=== PATIENT | male | born 1995 | race Two or more races ===

== ENCOUNTER 2022-03-18 17:26 | Emergency (ER) | payer MEDICAID ==
[2022-03-18] MEDS ORDERED: Sodium Chloride 0.9% 10 ML Syringe FLUSH PRN (17:44)
[2022-03-18] MEDS ORDERED: Metoprolol Succinate 25 MG Tab.ER PO ONE (18:49)
== END 2022-03-18 20:05 | disposition home or self-care (01) ==
LOC: JD.ED 17:26
DX: R00.0 Tachycardia, unspecified (principal); Z79.899 Other long term (current) drug therapy; Z88.8 Allergy status to other drugs, medicaments and biological substances
CPT/HCPCS: 36415; 71045; 80053; 83735; 84484; 85025; 85379; 86140; 93005; 99285; A9270; J3490

== ENCOUNTER 2023-03-27 10:59 | Emergency (ER) | payer MEDICAID ==
[2023-03-27] MEDS ORDERED: Sodium Chloride 0.9% 10 ML Syringe FLUSH PRN ×2 (11:18→11:35)
[2023-03-27] MEDS ORDERED: Sodium Chloride 0.9% 1,000 ML IV STA (11:18)
[2023-03-27] MEDS ORDERED: Ondansetron 4 MG/2 ML SDV IVPUSH ONE (11:32)
[2023-03-27] MEDS ORDERED: HYDROmorphone 0.5 MG/0.5 ML Syringe IVPUSH ONE ×2 (11:32→12:57)
[2023-03-27] MEDS ORDERED: Iopamidol 612 MG/ML 100 ML Bottle IVPUSH ONE ×2 (11:35→12:22)
[2023-03-27 12:03] LABS: BASOPHILS ABSOLUTE AUTO 0.02 K/mm3 (0.01-0.08); BASOPHILS PERCENT AUTO 0.3 % (0.1-1.2); EOSINOPHILS ABSOLUTE AUTO 0.12 K/mm3 (0.04-0.54); EOSINOPHILS PERCENT AUTO 1.8 (0.8-7.0); HEMATOCRIT 48.9 % (40.1-51.0); HEMOGLOBIN 16.8 gm/dl (13.7-17.5); IMMATURE GRAN ABSOLUTE AUTO 0.03 K/mm3 (0.00-0.10); IMMATURE GRAN PERCENT AUTO 0.4 % (<=1.0); LYMPHOCYTES ABSOLUTE AUTO 2.28 K/mm3 (1.32-3.57); MEAN CORPUSCULAR HEMOGLOBIN 31.1 pg (25.7-32.2); MEAN CORPUSCULAR HGB CONC 34.4 g/dl (32.2-35.5); MEAN CORPUSCULAR VOLUME 90.6 fl (79.0-92.2); MEAN PLATELET VOLUME 11.4 fl (9.4-12.3); MONOCYTES ABSOLUTE AUTO 0.61 K/mm3 (0.30-0.82); MONOCYTES PERCENT AUTO 9.1 % (5.3-12.2); NEUTROPHILS ABSOLUTE AUTO 3.64 K/mm3 (1.78-5.38); NEUTROPHILS PERCENT AUTO 54.4 % (34.0-67.9); PLATELET COUNT,PLT 252 K/mm3 (163-337)
[2023-03-27] MEDS ORDERED: Sodium Chloride 0.9% 10 ML Syringe FLUSH ONE (12:22)
[2023-03-27 12:27] LABS: ALANINE AMINOTRANSFERASE,ALT 55 U/L (16-63); ALBUMIN 4.4 g/dl (3.4-5.0); ALKALINE PHOSPHATASE 96 U/L (46-116); ANION GAP 13.1 (5-15); ASPARTATE AMNIOTRANSFERASE,AST 37 U/L (15-37); BILIRUBIN TOTAL 1.5 mg/dL (0.2-1.0); BLOOD UREA NITROGEN,BUN 9 mg/dL (7-18); BUN/CREATININE RATIO 11.3 (14-18); C-REACTIVE PROTEIN <0.2 mg/dL (<1.0); CALCIUM 9.4 mg/dL (8.5-10.1); CARBON DIOXIDE,CO2 26 mEq/L (21-32); CHLORIDE,CL 102 mEq/L (98-107); CREATININE 0.8 mg/dL (0.7-1.3); ESTIMATED GFR 125 mL/min (>60); GLUCOSE RANDOM 91 mg/dL (70-99); LIPASE 52 U/L (73-393); POTASSIUM,K 4.1 mEq/L (3.5-5.1); PROTEIN TOTAL,TP 8.8 g/dl (6.4-8.2); SODIUM,NA 137 mEq/L (136-145)
[2023-03-27] MEDS ORDERED: Alum Hydrox/Mag Hydrox/Simeth 30 ML, Lidocaine 2% 15 ML PO ONE ×2 (13:29)
== END 2023-03-27 14:46 | disposition home or self-care (01) ==
LOC: JD.ED 10:59
DX: R10.84 Generalized abdominal pain (principal); R11.2 Nausea with vomiting, unspecified; R19.7 Diarrhea, unspecified; I48.91 Unspecified atrial fibrillation; Z88.6 Allergy status to analgesic agent; Z88.5 Allergy status to narcotic agent; Z91.040 Latex allergy status; Z79.899 Other long term (current) drug therapy
CPT/HCPCS: 36415; 74177; 80053; 83690; 85025; 86140; 96361; 96374; 96375; 96376; 99284; A9270; J1170; J2405; J3490; J7030; Q9967

== ENCOUNTER 2023-07-10 12:52 | Emergency (ER) | payer MEDICAID ==
[2023-07-10 13:55] LABS: BASOPHILS ABSOLUTE AUTO 0.1 K/mm3 (0.0-0.2); BASOPHILS PERCENT AUTO 0.7 % (0.0-1.0); EOSINOPHILS ABSOLUTE AUTO 0.2 K/mm3 (0.0-0.4); EOSINOPHILS PERCENT AUTO 2.1 % (0.0-6.0); HEMATOCRIT 48.2 % (42.0-52.0); HEMOGLOBIN 16.5 gm/dl (14.0-18.0); IMMATURE GRAN ABSOLUTE AUTO 0.08 K/mm3 (0.00-0.05); IMMATURE GRAN PERCENT AUTO 0.9 % (0.0-0.4); LYMPHOCYTES ABSOLUTE AUTO 3.1 K/mm3 (1.0-4.8); LYMPHOCYTES PERCENT AUTO 36.3 % (24.0-44.0); MEAN CORPUSCULAR HEMOGLOBIN 31.1 pg (28.0-32.0); MEAN CORPUSCULAR HGB CONC 34.2 g/dl (32.0-36.0); MEAN CORPUSCULAR VOLUME 90.9 fl (83.0-99.0); MEAN PLATELET VOLUME 11.2 fl (9.4-12.4); MONOCYTES ABSOLUTE AUTO 0.7 K/mm3 (0.0-0.8); MONOCYTES PERCENT AUTO 8.3 % (0.0-8.0); NEUTROPHILS ABSOLUTE AUTO 4.5 K/mm3 (1.8-7.7); NEUTROPHILS PERCENT AUTO 51.7 % (41.0-71.0); PLATELET COUNT,PLT 279 K/mm3 (150-400)
[2023-07-10] MEDS ORDERED: HYDROmorphone 0.5 MG/0.5 ML Syringe IVPUSH ONE ×2 (13:57→15:02)
[2023-07-10] MEDS ORDERED: Iopamidol 755 Mg/ML 100 ML Bottle IVPUSH ONE (13:59)
[2023-07-10] MEDS ORDERED: Sodium Chloride 0.9% 100 ML IV SCH (14:00)
[2023-07-10 14:05] LABS: A/G RATIO 0.9 (1-2); ALANINE AMINOTRANSFERASE,ALT 48 U/L (16-63); ALBUMIN 4.1 g/dl (3.4-5.0); ALKALINE PHOSPHATASE 89 U/L (46-116); ANION GAP 12.8 (5-15); ASPARTATE AMNIOTRANSFERASE,AST 28 U/L (15-37); BILIRUBIN TOTAL 0.6 mg/dL (0.2-1.0); BLOOD UREA NITROGEN,BUN 10 mg/dL (7-18); BUN/CREATININE RATIO 12.5 (14-18); CALCIUM 9.3 mg/dL (8.5-10.1); CARBON DIOXIDE,CO2 27 mEq/L (21-32); CHLORIDE,CL 102 mEq/L (98-107); CREATININE 0.8 mg/dL (0.7-1.3); EST CRCL DRUG DOSING (CG) 134.19 mL/min; ESTIMATED GFR 124 mL/min (>60); GLUCOSE RANDOM 103 mg/dL (70-99); MAGNESIUM 1.9 mg/dL (1.8-2.4); POTASSIUM,K 3.8 mEq/L (3.5-5.1); PROTEIN TOTAL,TP 8.6 g/dl (6.4-8.2); SODIUM,NA 138 mEq/L (136-145)
[2023-07-10 14:09] LABS: TROPONIN I HIGH SENSITIVITY < 4 pg/mL (<=76)
[2023-07-10 14:10] LABS: PTT,PARTIAL THROMBOPLSTIN TIME 30.2 SECONDS (21.7-31.4)
[2023-07-10 14:11] LABS: INR 1.01; PROTHROMBIN TIME 10.8 SECONDS (9.7-12.0)
[2023-07-10 14:16] LABS: D-DIMER QUANTITATIVE < 0.19 mg/L (0.19-0.50)
[2023-07-10] MEDS ORDERED: LORazepam 2 MG/ML SDV IVPUSH ONE (15:14)
[2023-07-10] MEDS ORDERED: Sodium Chloride 0.9% 1,000 ML IV ONE (15:35)
[2023-07-10] MEDS ORDERED: Metoprolol Tartrate 5 MG/5 ML SDV IVPUSH ONE (15:35)
[2023-07-10] MEDS ORDERED: Aluminum Hydroxide/Magnesium Hydroxide/Simethicone Susp 30 ML Cup PO ONE (17:03)
[2023-07-10] MEDS ORDERED: Pantoprazole 40 MG Tab.CR PO ONE (17:20)
== END 2023-07-10 17:37 | disposition home or self-care (01) ==
LOC: JD.ED 12:52
DX: R07.89 Other chest pain (principal); R00.0 Tachycardia, unspecified; I48.91 Unspecified atrial fibrillation; Z91.040 Latex allergy status; Z88.5 Allergy status to narcotic agent
CPT/HCPCS: 36415; 71275; 80053; 83735; 84484; 85025; 85379; 85610; 85730; 93005; 96374; 96375; 96376; 99285; A9270; J1170; J3490; J7030; Q9967; 93010; 99284

== ENCOUNTER 2024-01-29 14:59 | Emergency (ER) | payer MEDICAID ==
[2024-01-29 15:41] LABS: BASOPHILS ABSOLUTE AUTO 0.1 K/mm3 (0.0-0.2); BASOPHILS PERCENT AUTO 0.6 % (0.0-1.0); EOSINOPHILS ABSOLUTE AUTO 0.1 K/mm3 (0.0-0.4); EOSINOPHILS PERCENT AUTO 1.1 % (0.0-6.0); HEMATOCRIT 46.5 % (42.0-52.0); HEMOGLOBIN 16.2 gm/dl (14.0-18.0); IMMATURE GRAN ABSOLUTE AUTO 0.07 K/mm3 (0.00-0.05); IMMATURE GRAN PERCENT AUTO 0.7 % (0.0-0.4); LYMPHOCYTES ABSOLUTE AUTO 2.6 K/mm3 (1.0-4.8); MEAN CORPUSCULAR HEMOGLOBIN 31.5 pg (28.0-32.0); MEAN CORPUSCULAR HGB CONC 34.8 g/dl (32.0-36.0); MEAN CORPUSCULAR VOLUME 90.5 fl (83.0-99.0); MEAN PLATELET VOLUME 10.9 fl (9.4-12.4); MONOCYTES ABSOLUTE AUTO 0.9 K/mm3 (0.0-0.8); NEUTROPHILS ABSOLUTE AUTO 5.9 K/mm3 (1.8-7.7); NEUTROPHILS PERCENT AUTO 61.6 % (41.0-71.0); PLATELET COUNT,PLT 271 K/mm3 (150-400); RED BLOOD CELL COUNT 5.14 M/mm3 (4.52-5.90); WHITE BLOOD CELL COUNT,WBC 9.59 K/mm3 (3.9-11.3)
[2024-01-29 16:13] LABS: ALBUMIN 4.2 g/dl (3.4-5.0); ANION GAP 14.9 (5-15); BILIRUBIN TOTAL 0.9 mg/dL (0.2-1.0); BUN/CREATININE RATIO 11.4 (14-18); CALCIUM 9.1 mg/dL (8.5-10.1); CREATININE 0.7 mg/dL (0.7-1.3); EST CRCL DRUG DOSING (CG) 153.36 mL/min; POTASSIUM,K 3.9 mEq/L (3.5-5.1); PROTEIN TOTAL,TP 8.4 g/dl (6.4-8.2)
[2024-01-29 16:17] LABS: TSH 1.065 uIU/mL (0.358-3.74)
[2024-01-29] MEDS: Metoprolol Succinate 50 MG Tab.ER PO ONE (16:25)
[2024-01-29 17:17] LABS: APPEARANCE,URINE CLEAR (Clear); BILIRUBIN,URINE NEGATIVE (Negative); COLOR,URINE YELLOW (Yellow); GLUCOSE,URINE NEGATIVE (Negative); KETONES,URINE NEGATIVE (Negative); LEUKOCYTE ESTERASE,URINE NEGATIVE (Negative); NITRITE,URINE NEGATIVE (Negative); OCCULT BLOOD,URINE TRACE-INTACT (Negative); PH,URINE 6.5 (5.0-8.0); PROTEIN,URINE NEGATIVE (Negative)
[2024-01-29 17:46] LABS: RBC,URINE 0-5 /hpf (0-5); SQUAMOUS EPITHELIAL CELLS,UR 0-5 /hpf (0-5); WBC,URINE 0-5 /hpf (0-5)
[2024-01-29 17:47] LABS: BACTERIA,URINE FEW /hpf (FEW); MUCUS,URINE FEW /hpf (FEW)
== END 2024-01-29 17:35 | disposition home or self-care (01) ==
LOC: JD.ED 14:59
DX: R00.2 Palpitations (principal); R00.0 Tachycardia, unspecified; Z86.16 Personal history of COVID-19; Z79.899 Other long term (current) drug therapy; Z88.5 Allergy status to narcotic agent; Z91.040 Latex allergy status
CPT/HCPCS: 36415; 71046; 80053; 81001; 84443; 84484; 85025; 85379; 93005; 99285; A9270; 93010; 99283

== ENCOUNTER 2024-03-07 19:04 | Emergency (ER) | payer MEDICAID ==
[2024-03-07] MEDS: Sodium Chloride 0.9% 10 ML Syringe FLUSH PRN (20:00)
[2024-03-07 20:03] LABS: BASOPHILS ABSOLUTE AUTO 0.1 K/mm3 (0.0-0.2); BASOPHILS PERCENT AUTO 0.6 % (0.0-1.0); EOSINOPHILS ABSOLUTE AUTO 0.2 K/mm3 (0.0-0.4); EOSINOPHILS PERCENT AUTO 2.2 % (0.0-6.0); HEMOGLOBIN 16.4 gm/dl (14.0-18.0); IMMATURE GRAN ABSOLUTE AUTO 0.04 K/mm3 (0.00-0.05); IMMATURE GRAN PERCENT AUTO 0.4 % (0.0-0.4); LYMPHOCYTES ABSOLUTE AUTO 4.2 K/mm3 (1.0-4.8); LYMPHOCYTES PERCENT AUTO 39.2 % (24.0-44.0); MEAN CORPUSCULAR HEMOGLOBIN 31.3 pg (28.0-32.0); MEAN CORPUSCULAR HGB CONC 34.9 g/dl (32.0-36.0); MEAN CORPUSCULAR VOLUME 89.7 fl (83.0-99.0); MEAN PLATELET VOLUME 10.7 fl (9.4-12.4); MONOCYTES PERCENT AUTO 9.2 % (0.0-8.0); NEUTROPHILS ABSOLUTE AUTO 5.1 K/mm3 (1.8-7.7); NEUTROPHILS PERCENT AUTO 48.4 % (41.0-71.0); PLATELET COUNT,PLT 284 K/mm3 (150-400); RED BLOOD CELL COUNT 5.24 M/mm3 (4.52-5.90); WHITE BLOOD CELL COUNT,WBC 10.59 K/mm3 (3.9-11.3)
[2024-03-07] MEDS: Sodium Chloride 0.9% 1,000 ML IV SCH (20:14)
[2024-03-07] MEDS: Ondansetron 4 MG/2 ML SDV IVPUSH ONE ×2 (20:14→21:35)
[2024-03-07 20:27] LABS: ALBUMIN 4.1 g/dl (3.4-5.0); ANION GAP 12.8 (5-15); BILIRUBIN TOTAL 0.7 mg/dL (0.2-1.0); BUN/CREATININE RATIO 8.8 (14-18); C-REACTIVE PROTEIN 0.37 mg/dL (<0.30); CALCIUM 9.2 mg/dL (8.5-10.1); CREATININE 0.8 mg/dL (0.7-1.3); EST CRCL DRUG DOSING (CG) 134.19 mL/min; MAGNESIUM 1.9 mg/dL (1.8-2.4); PROTEIN TOTAL,TP 8.2 g/dl (6.4-8.2)
[2024-03-07 20:30] LABS: POTASSIUM,K 3.8 mEq/L (3.5-5.1)
[2024-03-07] MEDS ORDERED: traZODone 50 MG Tab PO SCH (21:00)
[2024-03-07] MEDS: HYDROmorphone 0.5 MG/0.5 ML Syringe IVPUSH ONE (21:04)
[2024-03-07] MEDS: Iopamidol 612 MG/ML 100 ML Bottle IVPUSH ONE (21:23)
[2024-03-07] MEDS ORDERED: Acetaminophen 325 MG Tab PO PRN (21:32)
[2024-03-07] MEDS ORDERED: 50% Dextrose in Water 50 ML Syringe IVPUSH PRN (21:35)
[2024-03-07] MEDS: OLANZapine 5 MG Tab PO ONE (21:42)
[2024-03-07] MEDS ORDERED: risperiDONE 1 MG Tab PO SCH (21:45)
[2024-03-07] MEDS: Promethazine 25 MG/ML SDV IM ONE (22:51)
[2024-03-08] MEDS ORDERED: Insulin Regular, Human 100 Units/ML 3 ML Vial SUBCUT SCH (09:00)
[2024-03-08] MEDS ORDERED: Potassium Chloride 20 MEQ Tab.ER PO SCH (09:00)
[2024-03-08] MEDS ORDERED: Sertraline 50 MG Tab PO SCH (09:00)
[2024-03-08] MEDS ORDERED: Folic Acid 1 MG Tab PO SCH (09:00)
[2024-03-08] MEDS ORDERED: Furosemide 20 MG Tab PO SCH (09:00)
[2024-03-08] MEDS ORDERED: Metoprolol Succinate 50 MG Tab.ER PO SCH (09:00)
[2024-03-08] MEDS ORDERED: Spironolactone 25 MG Tab PO SCH (09:00)
[2024-03-08] MEDS ORDERED: Aspirin 81 MG Tab.EC PO SCH (09:00)
[2024-03-08] MEDS ORDERED: Lisinopril 10 MG Tab PO SCH (09:00)
[2024-03-08] MEDS ORDERED: Topiramate 25 MG Tab PO SCH (09:00)
[2024-03-08] MEDS ORDERED: Tamsulosin 0.4 MG Cap.ER PO SCH (10:00)
[2024-03-08] MEDS ORDERED: Rosuvastatin 10 MG Tab PO SCH (21:00)
== END 2024-03-07 22:35 | disposition home or self-care (01) ==
LOC: JD.ED 19:04
DX: K52.9 Noninfective gastroenteritis and colitis, unspecified (principal); I48.91 Unspecified atrial fibrillation; Z86.16 Personal history of COVID-19; Z79.899 Other long term (current) drug therapy; Z91.040 Latex allergy status; Z88.5 Allergy status to narcotic agent; Z88.6 Allergy status to analgesic agent
CPT/HCPCS: 36415; 74177; 80053; 83690; 83735; 85025; 86140; 96361; 96374; 96375; 99284; J1170; J2405; J3490; J7030; Q9967

== ENCOUNTER 2024-05-20 19:59 | Emergency (ER) | payer MEDICAID ==
[2024-05-20] MEDS ORDERED: Sodium Chloride 0.9% 10 ML Syringe FLUSH PRN (22:16)
[2024-05-20 22:44] LABS: BASOPHILS ABSOLUTE AUTO 0.1 K/mm3 (0.0-0.2); BASOPHILS PERCENT AUTO 0.5 % (0.0-1.0); EOSINOPHILS ABSOLUTE AUTO 0.1 K/mm3 (0.0-0.4); EOSINOPHILS PERCENT AUTO 0.7 % (0.0-6.0); HEMATOCRIT 46.3 % (42.0-52.0); HEMOGLOBIN 15.8 gm/dl (14.0-18.0); IMMATURE GRAN ABSOLUTE AUTO 0.06 K/mm3 (0.00-0.05); IMMATURE GRAN PERCENT AUTO 0.4 % (0.0-0.4); LYMPHOCYTES PERCENT AUTO 28.1 % (24.0-44.0); MEAN CORPUSCULAR HEMOGLOBIN 31.3 pg (28.0-32.0); MEAN CORPUSCULAR HGB CONC 34.1 g/dl (32.0-36.0); MEAN CORPUSCULAR VOLUME 91.7 fl (83.0-99.0); MEAN PLATELET VOLUME 10.9 fl (9.4-12.4); MONOCYTES ABSOLUTE AUTO 1.3 K/mm3 (0.0-0.8); MONOCYTES PERCENT AUTO 8.8 % (0.0-8.0); NEUTROPHILS ABSOLUTE AUTO 8.8 K/mm3 (1.8-7.7); NEUTROPHILS PERCENT AUTO 61.5 % (41.0-71.0); PLATELET COUNT,PLT 279 K/mm3 (150-400); RED BLOOD CELL COUNT 5.05 M/mm3 (4.52-5.90); WHITE BLOOD CELL COUNT,WBC 14.25 K/mm3 (3.9-11.3)
[2024-05-20] MEDS: Sodium Chloride 0.9% 1,000 ML IV ONE (22:53)
[2024-05-20] MEDS: Alum Hydrox/Mag Hydrox/Simeth 30 ML, Lidocaine 2% 15 ML PO ONE (23:07)
[2024-05-20] MEDS: Famotidine 20 MG Tab PO ONE (23:07)
[2024-05-20 23:08] LABS: A/G RATIO 1.1 (1-2); ALBUMIN 4.2 g/dl (3.4-5.0); ANION GAP 13.7 (5-15); BILIRUBIN TOTAL 1.1 mg/dL (0.2-1.0); CALCIUM 9.2 mg/dL (8.5-10.1); EST CRCL DRUG DOSING (CG) 103.74 mL/min; POTASSIUM,K 3.7 mEq/L (3.5-5.1); PROTEIN TOTAL,TP 8.2 g/dl (6.4-8.2)
[2024-05-21] MEDS: Sodium Chloride 0.9% 1,000 ML IV ONE (00:45)
== END 2024-05-21 04:26 | disposition left against medical advice (07) ==
LOC: JD.ED 19:59
DX: R07.9 Chest pain, unspecified (principal); E86.0 Dehydration; R77.8 Other specified abnormalities of plasma proteins; E66.9 Obesity, unspecified; F17.210 Nicotine dependence, cigarettes, uncomplicated; Z86.16 Personal history of COVID-19; Z79.899 Other long term (current) drug therapy; Z91.040 Latex allergy status; Z88.8 Allergy status to other drugs, medicaments and biological substances; Z68.37 Body mass index [BMI] 37.0-37.9, adult
CPT/HCPCS: 36415; 71045; 80053; 82550; 83690; 84484; 85025; 85379; 93005; 96360; 96361; 99285; J7030

== ENCOUNTER 2024-07-10 21:40 | Emergency (ER) | payer MEDICAID ==
[2024-07-10 22:16] LABS: BASOPHILS ABSOLUTE AUTO 0.1 K/mm3 (0.0-0.2); BASOPHILS PERCENT AUTO 0.4 % (0.0-1.0); EOSINOPHILS ABSOLUTE AUTO 0.2 K/mm3 (0.0-0.4); EOSINOPHILS PERCENT AUTO 1.9 % (0.0-6.0); HEMATOCRIT 45.3 % (42.0-52.0); HEMOGLOBIN 15.3 gm/dl (14.0-18.0); IMMATURE GRAN ABSOLUTE AUTO 0.07 K/mm3 (0.00-0.05); IMMATURE GRAN PERCENT AUTO 0.6 % (0.0-0.4); LYMPHOCYTES PERCENT AUTO 43.1 % (24.0-44.0); MEAN CORPUSCULAR HEMOGLOBIN 31.4 pg (28.0-32.0); MEAN CORPUSCULAR HGB CONC 33.8 g/dl (32.0-36.0); MEAN PLATELET VOLUME 11.2 fl (9.4-12.4); MONOCYTES ABSOLUTE AUTO 0.9 K/mm3 (0.0-0.8); MONOCYTES PERCENT AUTO 7.9 % (0.0-8.0); NEUTROPHILS ABSOLUTE AUTO 5.3 K/mm3 (1.8-7.7); NEUTROPHILS PERCENT AUTO 46.1 % (41.0-71.0); PLATELET COUNT,PLT 273 K/mm3 (150-400); RED BLOOD CELL COUNT 4.87 M/mm3 (4.52-5.90); WHITE BLOOD CELL COUNT,WBC 11.57 K/mm3 (3.9-11.3)
[2024-07-10 22:26] LABS: ALBUMIN 3.9 g/dl (3.4-5.0); ANION GAP 10.7 (5-15); BILIRUBIN TOTAL 0.4 mg/dL (0.2-1.0); C-REACTIVE PROTEIN 0.44 mg/dL (<0.30); CALCIUM 9.2 mg/dL (8.5-10.1); EST CRCL DRUG DOSING (CG) 102.82 mL/min; MAGNESIUM 1.8 mg/dL (1.8-2.4); PROTEIN TOTAL,TP 7.8 g/dl (6.4-8.2)
[2024-07-10] MEDS: Sodium Chloride 0.9% 10 ML Syringe FLUSH PRN (22:28)
[2024-07-10 22:38] LABS: POTASSIUM,K 3.7 mEq/L (3.5-5.1)
[2024-07-10 23:05] LABS: APPEARANCE,URINE CLEAR (Clear); BILIRUBIN,URINE NEGATIVE (Negative); COLOR,URINE YELLOW (Yellow); GLUCOSE,URINE NEGATIVE (Negative); KETONES,URINE NEGATIVE (Negative); LEUKOCYTE ESTERASE,URINE NEGATIVE (Negative); NITRITE,URINE NEGATIVE (Negative); OCCULT BLOOD,URINE NEGATIVE (Negative); PROTEIN,URINE NEGATIVE (Negative)
[2024-07-10 23:18] LABS: CORONAVIRUS COVID-19 NAA NEGATIVE (NEGATIVE); INFLUENZA A NAA NEGATIVE (NEGATIVE); RESPIRATORY SYNCYTIAL VIR NAA NEGATIVE (NEGATIVE)
== END 2024-07-11 ==
LOC: JD.ED 21:40 → MERGE 21:40 → JD.ED 07-11
DX: A08.4 Viral intestinal infection, unspecified (principal); Z88.8 Allergy status to other drugs, medicaments and biological substances
CPT/HCPCS: 0241U; 36415; 80053; 81003; 83690; 83735; 85025; 86140; 99284; J3490; 99283

== ENCOUNTER 2024-10-04 04:44 | Emergency (ER) | payer MEDICAID ==
[2024-10-04] MEDS ORDERED: Naloxone 0.4 MG/ML SDV IVPUSH PRN (05:04)
[2024-10-04] MEDS: Ondansetron 4 MG/2 ML SDV IVPUSH ONE (05:25)
[2024-10-04] MEDS: Morphine 4 MG/ML Syringe IVPUSH ONE (05:25)
[2024-10-04] MEDS: Sodium Chloride 0.9% 10 ML Syringe FLUSH PRN (05:26)
[2024-10-04 05:43] LABS: BASOPHILS ABSOLUTE AUTO 0.1 K/mm3 (0.0-0.2); BASOPHILS PERCENT AUTO 0.6 % (0.0-1.0); EOSINOPHILS ABSOLUTE AUTO 0.2 K/mm3 (0.0-0.4); EOSINOPHILS PERCENT AUTO 1.8 % (0.0-6.0); HEMATOCRIT 46.2 % (42.0-52.0); HEMOGLOBIN 15.6 gm/dl (14.0-18.0); IMMATURE GRAN ABSOLUTE AUTO 0.05 K/mm3 (0.00-0.05); IMMATURE GRAN PERCENT AUTO 0.5 % (0.0-0.4); LYMPHOCYTES ABSOLUTE AUTO 2.9 K/mm3 (1.0-4.8); LYMPHOCYTES PERCENT AUTO 30.1 % (24.0-44.0); MEAN CORPUSCULAR HEMOGLOBIN 31.1 pg (28.0-32.0); MEAN CORPUSCULAR HGB CONC 33.8 g/dl (32.0-36.0); MEAN PLATELET VOLUME 11.6 fl (9.4-12.4); MONOCYTES ABSOLUTE AUTO 0.7 K/mm3 (0.0-0.8); MONOCYTES PERCENT AUTO 7.7 % (0.0-8.0); NEUTROPHILS ABSOLUTE AUTO 5.7 K/mm3 (1.8-7.7); NEUTROPHILS PERCENT AUTO 59.3 % (41.0-71.0); PLATELET COUNT,PLT 272 K/mm3 (150-400); RED BLOOD CELL COUNT 5.02 M/mm3 (4.52-5.90); WHITE BLOOD CELL COUNT,WBC 9.53 K/mm3 (3.9-11.3)
[2024-10-04 06:48] LABS: A/G RATIO 0.9 (1-2); ALANINE AMINOTRANSFERASE,ALT 39 U/L (16-63); ALBUMIN 3.8 g/dl (3.4-5.0); ALKALINE PHOSPHATASE 95 U/L (46-116); ASPARTATE AMNIOTRANSFERASE,AST 20 U/L (15-37); BILIRUBIN TOTAL 0.7 mg/dL (0.2-1.0); BLOOD UREA NITROGEN,BUN 15 mg/dL (7-18); BUN/CREATININE RATIO 16.7 (14-18); CALCIUM 9.2 mg/dL (8.5-10.1); CARBON DIOXIDE,CO2 26 mEq/L (21-32); CHLORIDE,CL 104 mEq/L (98-107); CREATININE 0.9 mg/dL (0.7-1.3); EST CRCL DRUG DOSING (CG) 126.17 mL/min; ESTIMATED GFR 119 mL/min (>60); GLUCOSE RANDOM 118 mg/dL (70-99); LIPASE 26 U/L (16-77); MAGNESIUM 1.9 mg/dL (1.8-2.4); SODIUM,NA 139 mEq/L (136-145)
[2024-10-04 06:51] LABS: TROPONIN I HIGH SENSITIVITY < 4 pg/mL (<=76)
== END 2024-10-04 08:31 | disposition home or self-care (01) ==
LOC: JD.ED 04:44
DX: R07.89 Other chest pain (principal); E66.9 Obesity, unspecified; Z86.16 Personal history of COVID-19; Z79.899 Other long term (current) drug therapy; Z91.040 Latex allergy status; Z88.8 Allergy status to other drugs, medicaments and biological substances
CPT/HCPCS: 36415; 71045; 80053; 83690; 83735; 83880; 84484; 85025; 85379; 93005; 96374; 96375; 99285; J2270; J2405; J3490; 93010; 99284

== ENCOUNTER 2024-10-26 15:22 | Emergency (ER) | payer MEDICAID ==
[2024-10-26 17:40] LABS: BASOPHILS PERCENT AUTO 0.4 % (0.0-1.0); EOSINOPHILS ABSOLUTE AUTO 0.2 K/mm3 (0.0-0.4); EOSINOPHILS PERCENT AUTO 1.7 % (0.0-6.0); HEMATOCRIT 45.2 % (42.0-52.0); HEMOGLOBIN 15.6 gm/dl (14.0-18.0); IMMATURE GRAN ABSOLUTE AUTO 0.04 K/mm3 (0.00-0.05); IMMATURE GRAN PERCENT AUTO 0.4 % (0.0-0.4); LYMPHOCYTES ABSOLUTE AUTO 2.9 K/mm3 (1.0-4.8); LYMPHOCYTES PERCENT AUTO 29.2 % (24.0-44.0); MEAN CORPUSCULAR HEMOGLOBIN 30.8 pg (28.0-32.0); MEAN CORPUSCULAR HGB CONC 34.5 g/dl (32.0-36.0); MEAN CORPUSCULAR VOLUME 89.3 fl (83.0-99.0); MEAN PLATELET VOLUME 11.4 fl (9.4-12.4); MONOCYTES ABSOLUTE AUTO 0.8 K/mm3 (0.0-0.8); MONOCYTES PERCENT AUTO 8.2 % (0.0-8.0); NEUTROPHILS PERCENT AUTO 60.1 % (41.0-71.0); PLATELET COUNT,PLT 281 K/mm3 (150-400); RED BLOOD CELL COUNT 5.06 M/mm3 (4.52-5.90); WHITE BLOOD CELL COUNT,WBC 9.98 K/mm3 (3.9-11.3)
[2024-10-26] MEDS: Sodium Chloride 0.9% 1,000 ML IV ONE (17:40)
[2024-10-26 18:01] LABS: ALBUMIN 4.2 g/dl (3.4-5.0); ANION GAP 13.9 (5-15); BILIRUBIN TOTAL 0.6 mg/dL (0.2-1.0); CALCIUM 9.1 mg/dL (8.5-10.1); CREATININE 0.7 mg/dL (0.7-1.3); MAGNESIUM 2.1 mg/dL (1.8-2.4); POTASSIUM,K 3.9 mEq/L (3.5-5.1); PROTEIN TOTAL,TP 8.4 g/dl (6.4-8.2)
[2024-10-26] MEDS: levETIRAcetam Soln 500 MG/5 ML Cup PO ONE (18:38)
== END 2024-10-26 18:40 | disposition home or self-care (01) ==
LOC: JD.ED 15:22
DX: R69 Illness, unspecified (principal); I10 Essential (primary) hypertension; E66.9 Obesity, unspecified; F17.210 Nicotine dependence, cigarettes, uncomplicated; Z86.16 Personal history of COVID-19; Z79.899 Other long term (current) drug therapy; Z91.040 Latex allergy status; Z88.5 Allergy status to narcotic agent; Z68.37 Body mass index [BMI] 37.0-37.9, adult
CPT/HCPCS: 36415; 80053; 83735; 85025; 87428; 93005; 96360; 99285; J7030

== ENCOUNTER 2024-11-15 16:31 | Emergency (ER) | payer MEDICAID ==
[2024-11-15] MEDS: Metoclopramide 10 MG Tab PO ONE (20:07)
[2024-11-15] MEDS: Naproxen 500 MG Tab PO ONE (20:07)
== END 2024-11-15 21:04 | disposition home or self-care (01) ==
LOC: JD.ED 16:31
DX: S09.90XA Unspecified injury of head, initial encounter (principal); S39.92XA Unspecified injury of lower back, initial encounter; E66.9 Obesity, unspecified; Z68.37 Body mass index [BMI] 37.0-37.9, adult; Z86.16 Personal history of COVID-19; Z88.5 Allergy status to narcotic agent; Z88.8 Allergy status to other drugs, medicaments and biological substances; Z91.040 Latex allergy status; Z79.899 Other long term (current) drug therapy; W00.0XXA Fall on same level due to ice and snow, initial encounter
CPT/HCPCS: 70450; 72072; 72100; 72220; 99284; A9270

== ENCOUNTER 2025-01-15 03:50 | Emergency (ER) | payer MEDICAID ==
[2025-01-15] MEDS ORDERED: Naloxone 0.4 MG/ML SDV IVPUSH PRN (04:25)
[2025-01-15 04:40] LABS: BASOPHILS ABSOLUTE AUTO 0.1 K/mm3 (0.0-0.2); BASOPHILS PERCENT AUTO 0.5 % (0.0-1.0); EOSINOPHILS ABSOLUTE AUTO 0.2 K/mm3 (0.0-0.4); EOSINOPHILS PERCENT AUTO 2.1 % (0.0-6.0); HEMOGLOBIN 16.2 gm/dl (14.0-18.0); IMMATURE GRAN ABSOLUTE AUTO 0.07 K/mm3 (0.00-0.05); IMMATURE GRAN PERCENT AUTO 0.6 % (0.0-0.4); LYMPHOCYTES ABSOLUTE AUTO 3.5 K/mm3 (1.0-4.8); LYMPHOCYTES PERCENT AUTO 31.8 % (24.0-44.0); MEAN CORPUSCULAR HEMOGLOBIN 31.1 pg (28.0-32.0); MEAN CORPUSCULAR HGB CONC 34.5 g/dl (32.0-36.0); MEAN CORPUSCULAR VOLUME 90.2 fl (83.0-99.0); MONOCYTES ABSOLUTE AUTO 0.6 K/mm3 (0.0-0.8); MONOCYTES PERCENT AUTO 5.4 % (0.0-8.0); NEUTROPHILS ABSOLUTE AUTO 6.6 K/mm3 (1.8-7.7); NEUTROPHILS PERCENT AUTO 59.6 % (41.0-71.0); PLATELET COUNT,PLT 266 K/mm3 (150-400); RED BLOOD CELL COUNT 5.21 M/mm3 (4.52-5.90); WHITE BLOOD CELL COUNT,WBC 11.01 K/mm3 (3.9-11.3)
[2025-01-15] MEDS: Sodium Chloride 0.9% 3,000 ML IV ONE (04:47)
[2025-01-15] MEDS: HYDROmorphone 1 MG/ML Syringe IVPUSH ONE (04:48)
[2025-01-15] MEDS: Ondansetron 4 MG/2 ML SDV IVPUSH ONE (04:50)
[2025-01-15] MEDS: Piperacillin/Tazobactam 4.5 GM in Sodium Chloride 0.9% 100 ML IV ONE (04:51)
[2025-01-15 04:59] LABS: INR 1.03; PROTHROMBIN TIME 10.9 SECONDS (9.7-12.0)
[2025-01-15 05:01] LABS: ALBUMIN 4.1 g/dl (3.4-5.0); ANION GAP 15.8 (5-15); BILIRUBIN TOTAL 0.9 mg/dL (0.2-1.0); BUN/CREATININE RATIO 13.3 (14-18); CALCIUM 9.1 mg/dL (8.5-10.1); CREATININE 0.9 mg/dL (0.7-1.3); EST CRCL DRUG DOSING (CG) 118.22 mL/min; MAGNESIUM 1.9 mg/dL (1.8-2.4); POTASSIUM,K 3.8 mEq/L (3.5-5.1); PROTEIN TOTAL,TP 8.4 g/dl (6.4-8.2)
[2025-01-15] MEDS: Sodium Chloride 0.9% 10 ML Syringe FLUSH PRN (05:27)
[2025-01-15] MEDS: Iopamidol 612 MG/ML 100 ML Bottle IVPUSH ONE (05:27)
[2025-01-15 06:04] LABS: APPEARANCE,URINE CLEAR (Clear); BILIRUBIN,URINE NEGATIVE (Negative); COLOR,URINE YELLOW (Yellow); GLUCOSE,URINE NEGATIVE (Negative); KETONES,URINE NEGATIVE (Negative); LEUKOCYTE ESTERASE,URINE NEGATIVE (Negative); NITRITE,URINE NEGATIVE (Negative); OCCULT BLOOD,URINE NEGATIVE (Negative); PH,URINE 6.5 (5.0-8.0); PROTEIN,URINE NEGATIVE (Negative); UROBILINOGEN,URINE 0.2 (0.2-1.0)
[2025-01-15 06:15] LABS: BARBITURATE SCREEN,URINE NEGATIVE (CUTOFF=200); BENZODIAZEPINES SCREEN,URINE NEGATIVE (CUTOFF=150); BUPRENORPHINE SCREEN,URINE NEGATIVE (CUTOFF=10); METHADONE SCREEN, URINE NEGATIVE (CUT0FF=200); METHAMPHETAMINES SCREEN, URINE NEGATIVE (CUTOFF=500); OXYCODONE SCREEN,URINE NEGATIVE (CUT0FF=100); THC SCREEN,URINE 20 NG/ML NEGATIVE (CUTOFF=50)
[2025-01-15 06:23] LABS: AMPHETAMINES SCREEN, URINE NEGATIVE (CUTOFF=500)
== END 2025-01-15 07:15 | disposition home or self-care (01) ==
LOC: JD.ED 03:50 → MERGE 03:50 → JD.ED 07:15
DX: R10.33 Periumbilical pain (principal); R10.31 Right lower quadrant pain; Z88.5 Allergy status to narcotic agent; Z91.040 Latex allergy status; Z88.8 Allergy status to other drugs, medicaments and biological substances; Z79.899 Other long term (current) drug therapy
CPT/HCPCS: 36415; 74177; 80053; 80306; 80307; 81003; 82550; 83605; 83690; 83735; 85025; 85610; 86850; 86900; 86901; 87040; 96361; 96365; 96375; 99285; J1171; J2405; J2543; J7030; Q9967; 99283

== ENCOUNTER 2025-05-23 22:59 | Emergency (ER) | payer MEDICAID ==
[2025-05-23] MEDS ORDERED: Sodium Chloride 0.9% 10 ML Syringe FLUSH PRN (23:25)
[2025-05-23 23:51] LABS: BASOPHILS ABSOLUTE AUTO 0.1 K/mm3 (0.0-0.2); BASOPHILS PERCENT AUTO 0.5 % (0.0-1.0); EOSINOPHILS ABSOLUTE AUTO 0.2 K/mm3 (0.0-0.4); EOSINOPHILS PERCENT AUTO 1.4 % (0.0-6.0); IMMATURE GRAN ABSOLUTE AUTO 0.06 K/mm3 (0.00-0.05); IMMATURE GRAN PERCENT AUTO 0.5 % (0.0-0.4); LYMPHOCYTES ABSOLUTE AUTO 2.4 K/mm3 (1.0-4.8); LYMPHOCYTES PERCENT AUTO 21.1 % (24.0-44.0); MEAN PLATELET VOLUME 11.0 fl (9.4-12.4); MONOCYTES ABSOLUTE AUTO 1.0 K/mm3 (0.0-0.8); MONOCYTES PERCENT AUTO 8.9 % (0.0-8.0); NEUTROPHILS ABSOLUTE AUTO 7.6 K/mm3 (1.8-7.7); NEUTROPHILS PERCENT AUTO 67.6 % (41.0-71.0); NRBC ABSOLUTE 0.00 (0.00-0.02); NRBC PERCENT 0.0 % (0.0-0.2); PLATELET COUNT,PLT 274 K/mm3 (150-400); RED BLOOD CELL COUNT 5.01 M/mm3 (4.52-5.90); WHITE BLOOD CELL COUNT,WBC 11.31 K/mm3 (3.9-11.3)
[2025-05-24] MEDS ORDERED: Naloxone 0.4 MG/ML SDV IVPUSH PRN (00:42)
[2025-05-24 00:49] LABS: LACTIC ACID 1.5 mmol/L (0.4-2.0)
[2025-05-24 00:55] LABS: A/G RATIO 1.0 (1-2); ALANINE AMINOTRANSFERASE,ALT 55 U/L (16-63); ASPARTATE AMNIOTRANSFERASE,AST 27 U/L (15-37); BILIRUBIN TOTAL 0.8 mg/dL (0.2-1.0); BLOOD UREA NITROGEN,BUN 8 mg/dL (7-18); CARBON DIOXIDE,CO2 25 mEq/L (21-32); CHLORIDE,CL 103 mEq/L (98-107); CREATININE 0.8 mg/dL (0.7-1.3); EST CRCL DRUG DOSING (CG) 128.53 mL/min; ESTIMATED GFR 124 mL/min (>60); GLUCOSE RANDOM 135 mg/dL (70-99); POTASSIUM,K 3.6 mEq/L (3.5-5.1); PROTEIN TOTAL,TP 7.7 g/dl (6.4-8.2); SODIUM,NA 138 mEq/L (136-145)
[2025-05-24 00:59] LABS: TROPONIN I HIGH SENSITIVITY < 4 pg/mL (<=76)
[2025-05-24] MEDS: Ondansetron 4 MG/2 ML SDV IVPUSH ONE (01:05)
[2025-05-24] MEDS: Iopamidol 612 MG/ML 100 ML Bottle IVPUSH ONE (01:32)
== END 2025-05-24 03:55 | disposition home or self-care (01) ==
LOC: JD.ED 22:59 → EEVIPCON 22:59 → JD.ED 05-24 03:55
DX: R10.9 Unspecified abdominal pain (principal); I48.91 Unspecified atrial fibrillation; Z88.5 Allergy status to narcotic agent; Z91.040 Latex allergy status; Z79.899 Other long term (current) drug therapy; Z86.16 Personal history of COVID-19
CPT/HCPCS: 36415; 74177; 80053; 83605; 83690; 83735; 84484; 85025; 86140; 93005; 96361; 96374; 96375; 99284; J2270; J2405; J7030; Q9967; 93010

== ENCOUNTER 2025-05-27 18:18 | Emergency (ER) | payer MEDICAID ==
[2025-05-27 18:49] LABS: BASOPHILS ABSOLUTE AUTO 0.1 K/mm3 (0.0-0.2); BASOPHILS PERCENT AUTO 0.5 % (0.0-1.0); EOSINOPHILS ABSOLUTE AUTO 0.2 K/mm3 (0.0-0.4); EOSINOPHILS PERCENT AUTO 1.8 % (0.0-6.0); IMMATURE GRAN ABSOLUTE AUTO 0.03 K/mm3 (0.00-0.05); IMMATURE GRAN PERCENT AUTO 0.3 % (0.0-0.4); LYMPHOCYTES ABSOLUTE AUTO 3.1 K/mm3 (1.0-4.8); LYMPHOCYTES PERCENT AUTO 25.7 % (24.0-44.0); MEAN PLATELET VOLUME 11.3 fl (9.4-12.4); MONOCYTES ABSOLUTE AUTO 1.0 K/mm3 (0.0-0.8); MONOCYTES PERCENT AUTO 8.5 % (0.0-8.0); NEUTROPHILS ABSOLUTE AUTO 7.5 K/mm3 (1.8-7.7); NEUTROPHILS PERCENT AUTO 63.2 % (41.0-71.0); NRBC ABSOLUTE 0.00 (0.00-0.02); NRBC PERCENT 0.0 % (0.0-0.2); PLATELET COUNT,PLT 308 K/mm3 (150-400); RED BLOOD CELL COUNT 5.27 M/mm3 (4.52-5.90); WHITE BLOOD CELL COUNT,WBC 11.93 K/mm3 (3.9-11.3)
[2025-05-27 19:10] LABS: A/G RATIO 1.0 (1-2); ALANINE AMINOTRANSFERASE,ALT 58.0 U/L (16-63); ASPARTATE AMNIOTRANSFERASE,AST 34.0 U/L (15-37); BILIRUBIN TOTAL 0.6 mg/dL (0.2-1.0); BLOOD UREA NITROGEN,BUN 11.0 mg/dL (7-18); CARBON DIOXIDE,CO2 25.0 mEq/L (21-32); CHLORIDE,CL 105.0 mEq/L (98-107); CREATININE 0.8 mg/dL (0.7-1.3); EST CRCL DRUG DOSING (CG) 127.38 mL/min; ESTIMATED GFR 123.0 mL/min (>60); GLUCOSE RANDOM 109.0 mg/dL (70-99); PROTEIN TOTAL,TP 8.2 g/dl (6.4-8.2); SODIUM,NA 141.0 mEq/L (136-145)
[2025-05-27 19:21] LABS: POTASSIUM,K 3.9 mEq/L (3.5-5.1)
[2025-05-27] MEDS: Sodium Chloride 0.9% 10 ML Syringe FLUSH PRN (19:29)
[2025-05-27] MEDS: Iopamidol 612 MG/ML 100 ML Bottle IVPUSH ONE (19:29)
[2025-05-27] MEDS: Lactated Ringers 1,000 ML IV ONE (19:34)
[2025-05-27] MEDS: fentaNYL 100 MCG/2 ML SDV IVPUSH ONE (19:49)
[2025-05-27] MEDS: Levofloxacin/Dextrose 5%-Water 750 MG in Premix Bag 1 BAG IV ONE (21:32)
== END 2025-05-27 21:33 | disposition home or self-care (01) ==
LOC: JD.ED 18:18
DX: R10.84 Generalized abdominal pain (principal); F50.20 Bulimia nervosa, unspecified; R19.7 Diarrhea, unspecified; Z86.16 Personal history of COVID-19; Z88.5 Allergy status to narcotic agent; Z91.040 Latex allergy status; Z79.899 Other long term (current) drug therapy
CPT/HCPCS: 36415; 74177; 80053; 83690; 83735; 85025; 96361; 96374; 96375; 99284; A9270; J2405; J3010; J7120; Q9967

== ENCOUNTER 2025-07-23 01:28 | Emergency (ER) | payer MEDICAID ==
[2025-07-23] MEDS ORDERED: Naloxone 0.4 MG/ML SDV IVPUSH PRN (01:49)
[2025-07-23] MEDS ORDERED: Sodium Chloride 0.9% 10 ML Syringe FLUSH PRN (01:49)
[2025-07-23 01:54] LABS: BASOPHILS ABSOLUTE AUTO 0.1 K/mm3 (0.0-0.2); BASOPHILS PERCENT AUTO 0.7 % (0.0-1.0); EOSINOPHILS ABSOLUTE AUTO 0.3 K/mm3 (0.0-0.4); EOSINOPHILS PERCENT AUTO 2.2 % (0.0-6.0); IMMATURE GRAN ABSOLUTE AUTO 0.06 K/mm3 (0.00-0.05); IMMATURE GRAN PERCENT AUTO 0.5 % (0.0-0.4); LYMPHOCYTES ABSOLUTE AUTO 4.3 K/mm3 (1.0-4.8); LYMPHOCYTES PERCENT AUTO 36.8 % (24.0-44.0); MEAN PLATELET VOLUME 10.8 fl (9.4-12.4); MONOCYTES ABSOLUTE AUTO 0.8 K/mm3 (0.0-0.8); MONOCYTES PERCENT AUTO 6.6 % (0.0-8.0); NEUTROPHILS ABSOLUTE AUTO 6.3 K/mm3 (1.8-7.7); NEUTROPHILS PERCENT AUTO 53.2 % (41.0-71.0); NRBC ABSOLUTE 0.00 (0.00-0.02); NRBC PERCENT 0.0 % (0.0-0.2); PLATELET COUNT,PLT 264 K/mm3 (150-400); RED BLOOD CELL COUNT 5.17 M/mm3 (4.52-5.90); WHITE BLOOD CELL COUNT,WBC 11.78 K/mm3 (3.9-11.3)
[2025-07-23] MEDS: droPERidol 2.5 MG/ML SDV IV ONE (02:05)
[2025-07-23 02:27] LABS: A/G RATIO 1.1 (1-2); ALANINE AMINOTRANSFERASE,ALT 57.0 U/L (16-63); ASPARTATE AMNIOTRANSFERASE,AST 31.0 U/L (15-37); BILIRUBIN TOTAL 0.9 mg/dL (0.2-1.0); BLOOD UREA NITROGEN,BUN 8.0 mg/dL (7-18); CARBON DIOXIDE,CO2 25.0 mEq/L (21-32); CHLORIDE,CL 101.0 mEq/L (98-107); CREATININE 0.8 mg/dL (0.7-1.3); EST CRCL DRUG DOSING (CG) 131.81 mL/min; ESTIMATED GFR 123.0 mL/min (>60); GLUCOSE RANDOM 97.0 mg/dL (70-99); POTASSIUM,K 3.5 mEq/L (3.5-5.1); PROTEIN TOTAL,TP 8.0 g/dl (6.4-8.2); SODIUM,NA 138.0 mEq/L (136-145)
[2025-07-23] MEDS: Iopamidol 612 MG/ML 100 ML Bottle IVPUSH ONE (02:30)
[2025-07-23] MEDS: Sodium Chloride 0.9% 10 ML Syringe FLUSH PRN (02:30)
[2025-07-23 02:34] LABS: LACTIC ACID 2.2 mmol/L (0.4-2.0)
[2025-07-23 04:10] LABS: APPEARANCE,URINE CLEAR (Clear); GLUCOSE,URINE NEGATIVE (Negative); OCCULT BLOOD,URINE 1+ (Negative)
[2025-07-23 04:16] LABS: EPITHELIAL CELLS,URINE NOT SEEN /hpf (0-5)
[2025-07-23 04:19] LABS: BUPRENORPHINE SCREEN,URINE NEGATIVE (CUTOFF=10); METHADONE SCREEN, URINE NEGATIVE (CUT0FF=200); METHAMPHETAMINES SCREEN, URINE NEGATIVE (CUTOFF=500); OXYCODONE SCREEN,URINE NEGATIVE (CUT0FF=100); THC SCREEN,URINE 20 NG/ML NEGATIVE (CUTOFF=50)
[2025-07-23 04:24] LABS: AMPHETAMINES SCREEN, URINE NEGATIVE (CUTOFF=500)
== END 2025-07-23 06:12 | disposition home or self-care (01) ==
LOC: JD.ED 01:28
DX: R33.9 Retention of urine, unspecified (principal); R10.84 Generalized abdominal pain; E66.9 Obesity, unspecified; Z68.34 Body mass index [BMI] 34.0-34.9, adult; Z86.16 Personal history of COVID-19; Z88.5 Allergy status to narcotic agent; Z91.040 Latex allergy status; Z79.899 Other long term (current) drug therapy
CPT/HCPCS: 36415; 51702; 74177; 80053; 80306; 81001; 83605; 83690; 85025; 96361; 96374; 96375; 99284; J1790; J2270; J7030; Q9967

== ENCOUNTER 2025-07-23 08:32 | Emergency (ER) | payer MEDICAID ==
[2025-07-23 09:04] LABS: BASOPHILS ABSOLUTE AUTO 0.1 K/mm3 (0.0-0.2); BASOPHILS PERCENT AUTO 0.4 % (0.0-1.0); EOSINOPHILS ABSOLUTE AUTO 0.1 K/mm3 (0.0-0.4); EOSINOPHILS PERCENT AUTO 0.9 % (0.0-6.0); IMMATURE GRAN ABSOLUTE AUTO 0.06 K/mm3 (0.00-0.05); IMMATURE GRAN PERCENT AUTO 0.4 % (0.0-0.4); LYMPHOCYTES ABSOLUTE AUTO 2.8 K/mm3 (1.0-4.8); LYMPHOCYTES PERCENT AUTO 20.1 % (24.0-44.0); MEAN PLATELET VOLUME 11.3 fl (9.4-12.4); MONOCYTES ABSOLUTE AUTO 0.9 K/mm3 (0.0-0.8); MONOCYTES PERCENT AUTO 6.5 % (0.0-8.0); NEUTROPHILS ABSOLUTE AUTO 9.9 K/mm3 (1.8-7.7); NEUTROPHILS PERCENT AUTO 71.7 % (41.0-71.0); NRBC ABSOLUTE 0.00 (0.00-0.02); NRBC PERCENT 0.0 % (0.0-0.2); PLATELET COUNT,PLT 273 K/mm3 (150-400); RED BLOOD CELL COUNT 5.06 M/mm3 (4.52-5.90); WHITE BLOOD CELL COUNT,WBC 13.85 K/mm3 (3.9-11.3)
[2025-07-23] MEDS: Ondansetron 4 MG/2 ML SDV IVPUSH ONE (09:17)
[2025-07-23] MEDS: Sodium Chloride 0.9% 10 ML Syringe FLUSH PRN (09:17)
[2025-07-23 09:21] LABS: APPEARANCE,URINE CLEAR (Clear); GLUCOSE,URINE NEGATIVE (Negative); OCCULT BLOOD,URINE 1+ (Negative)
[2025-07-23 09:23] LABS: A/G RATIO 1.0 (1-2); ALANINE AMINOTRANSFERASE,ALT 56 U/L (16-63); ASPARTATE AMNIOTRANSFERASE,AST 25 U/L (15-37); BILIRUBIN TOTAL 1.2 mg/dL (0.2-1.0); BLOOD UREA NITROGEN,BUN 6 mg/dL (7-18); CARBON DIOXIDE,CO2 26 mEq/L (21-32); CHLORIDE,CL 104 mEq/L (98-107); CREATININE 0.8 mg/dL (0.7-1.3); EST CRCL DRUG DOSING (CG) 131.81 mL/min; ESTIMATED GFR 123 mL/min (>60); GLUCOSE RANDOM 122 mg/dL (70-99); POTASSIUM,K 3.5 mEq/L (3.5-5.1); PROTEIN TOTAL,TP 7.8 g/dl (6.4-8.2); SODIUM,NA 140 mEq/L (136-145); TSH 2.259 uIU/mL (0.358-3.74)
[2025-07-23 09:29] LABS: TROPONIN I HIGH SENSITIVITY < 4 pg/mL (<=76)
[2025-07-23 09:39] LABS: SQUAMOUS EPITHELIAL CELLS,UR NOT SEEN /hpf (0-5)
[2025-07-23] MEDS: Sucralfate Suspension 1 GM/10 ML Cup PO ONE (09:41)
[2025-07-23 10:03] LABS: BUPRENORPHINE SCREEN,URINE NEGATIVE (CUTOFF=10); METHADONE SCREEN, URINE NEGATIVE (CUT0FF=200); METHAMPHETAMINES SCREEN, URINE NEGATIVE (CUTOFF=500); OXYCODONE SCREEN,URINE NEGATIVE (CUT0FF=100); THC SCREEN,URINE 20 NG/ML NEGATIVE (CUTOFF=50)
[2025-07-23 10:06] LABS: AMPHETAMINES SCREEN, URINE NEGATIVE (CUTOFF=500)
== END 2025-07-23 11:06 | disposition home or self-care (01) ==
LOC: JD.ED 08:32 → EEVIPCON 08:32 → JD.ED 11:06
DX: R07.89 Other chest pain (principal); E66.9 Obesity, unspecified; Z68.32 Body mass index [BMI] 32.0-32.9, adult; Z86.16 Personal history of COVID-19; Z88.5 Allergy status to narcotic agent; Z91.040 Latex allergy status; Z79.899 Other long term (current) drug therapy
CPT/HCPCS: 36415; 71045; 80053; 80306; 81001; 83735; 84443; 84484; 85025; 85379; 93005; 96374; 99285; A9270; J2405

== ENCOUNTER 2025-09-26 20:41 | Emergency (ER) | payer MEDICAID ==
[2025-09-26] MEDS ORDERED: LORazepam 2 MG/ML SDV IVPUSH STA (20:45)
[2025-09-26 21:13] LABS: BASOPHILS ABSOLUTE AUTO 0.1 K/mm3 (0.0-0.2); BASOPHILS PERCENT AUTO 0.5 % (0.0-1.0); EOSINOPHILS ABSOLUTE AUTO 0.3 K/mm3 (0.0-0.4); EOSINOPHILS PERCENT AUTO 2.2 % (0.0-6.0); IMMATURE GRAN ABSOLUTE AUTO 0.06 K/mm3 (0.00-0.05); IMMATURE GRAN PERCENT AUTO 0.5 % (0.0-0.4); LYMPHOCYTES ABSOLUTE AUTO 3.5 K/mm3 (1.0-4.8); LYMPHOCYTES PERCENT AUTO 31.3 % (24.0-44.0); MEAN PLATELET VOLUME 10.9 fl (9.4-12.4); MONOCYTES ABSOLUTE AUTO 0.9 K/mm3 (0.0-0.8); MONOCYTES PERCENT AUTO 7.9 % (0.0-8.0); NEUTROPHILS ABSOLUTE AUTO 6.5 K/mm3 (1.8-7.7); NEUTROPHILS PERCENT AUTO 57.6 % (41.0-71.0); NRBC ABSOLUTE 0.00 (0.00-0.02); NRBC PERCENT 0.0 % (0.0-0.2); PLATELET COUNT,PLT 270 K/mm3 (150-400); RED BLOOD CELL COUNT 5.27 M/mm3 (4.52-5.90); WHITE BLOOD CELL COUNT,WBC 11.24 K/mm3 (3.9-11.3)
[2025-09-26 21:37] LABS: A/G RATIO 1.0 (1-2); ALANINE AMINOTRANSFERASE,ALT 54 U/L (16-63); ASPARTATE AMNIOTRANSFERASE,AST 34 U/L (15-37); BILIRUBIN TOTAL 0.9 mg/dL (0.2-1.0); BLOOD UREA NITROGEN,BUN 10 mg/dL (7-18); CARBON DIOXIDE,CO2 27 mEq/L (21-32); CHLORIDE,CL 103 mEq/L (98-107); CREATINE KINASE,CK 79 U/L (39-308); CREATININE 0.7 mg/dL (0.7-1.3); EST CRCL DRUG DOSING (CG) 150.64 mL/min; ESTIMATED GFR 128 mL/min (>60); GLUCOSE RANDOM 95 mg/dL (70-99); POTASSIUM,K 3.5 mEq/L (3.5-5.1); PROTEIN TOTAL,TP 8.6 g/dl (6.4-8.2); SODIUM,NA 139 mEq/L (136-145)
[2025-09-26 21:40] LABS: ETHANOL BLOOD MEDICAL 0.00 gm% (0.00); TROPONIN I HIGH SENSITIVITY < 4 pg/mL (<=76)
== END 2025-09-26 22:10 | disposition home or self-care (01) ==
LOC: JD.ED 20:41
DX: R00.2 Palpitations (principal); R00.0 Tachycardia, unspecified; E86.9 Volume depletion, unspecified; I48.91 Unspecified atrial fibrillation; E66.9 Obesity, unspecified; Z86.16 Personal history of COVID-19; Z79.899 Other long term (current) drug therapy; Z79.890 Hormone replacement therapy; Z91.040 Latex allergy status; Z88.5 Allergy status to narcotic agent
CPT/HCPCS: 36415; 80053; 80307; 82550; 83690; 83735; 84484; 85025; 93005; 96360; 99285; J7030; 93010; 99284